=== PATIENT | male | born 1960 | race Caucasian/White ===

== ENCOUNTER 2023-04-04 06:24 | Outpatient (RCR) | payer OTHER, SELFPAY | END 2023-04-04 23:59 | disposition home or self-care (01) | LOC: RPT 06:24 | PROVIDERS: ATTENDING PHYSICIAN Physician Assistant; FAMILY PHYSICIAN Student in an Organized Health Care Education/Training Program | DX: Z47.1 Aftercare following joint replacement surgery (principal); Z96.612 Presence of left artificial shoulder joint | CPT/HCPCS: 97010; 97110; 97140 ==

== ENCOUNTER → 2023-10-19 12:56 | Outpatient (REF) | payer SELFPAY | LOC: RAD 12:56 | PROVIDERS: ATTENDING PHYSICIAN Student in an Organized Health Care Education/Training Program | DX: E78.00 Pure hypercholesterolemia, unspecified (principal) | CPT/HCPCS: 75571 ==

== ENCOUNTER → 2023-11-01 07:34 | Outpatient (REF) | payer OTHER, SELFPAY | LOC: RCS 07:34 | PROVIDERS: ATTENDING PHYSICIAN Student in an Organized Health Care Education/Training Program | DX: R93.1 Abnormal findings on diagnostic imaging of heart and coronary circulation (principal) | CPT/HCPCS: 93017 ==

== ENCOUNTER → 2024-01-04 07:53 | Outpatient (REF) | payer OTHER, SELFPAY | LOC: RCS 07:53 | PROVIDERS: ATTENDING PHYSICIAN Internal Medicine; FAMILY PHYSICIAN Student in an Organized Health Care Education/Training Program | DX: I44.4 Left anterior fascicular block (principal) | CPT/HCPCS: 93306 ==

== ENCOUNTER → 2024-02-13 10:08 | Outpatient (REF) | payer OTHER, SELFPAY | LOC: RAD 10:08 | PROVIDERS: ATTENDING PHYSICIAN Student in an Organized Health Care Education/Training Program | DX: R07.81 Pleurodynia (principal); R10.12 Left upper quadrant pain; Z85.46 Personal history of malignant neoplasm of prostate | CPT/HCPCS: 71101 ==

== ENCOUNTER → 2024-02-15 08:48 | Outpatient (REF) | payer OTHER, SELFPAY | LOC: HWRAD 08:48 | PROVIDERS: ATTENDING PHYSICIAN Student in an Organized Health Care Education/Training Program | DX: R07.81 Pleurodynia (principal); R10.12 Left upper quadrant pain; Z85.46 Personal history of malignant neoplasm of prostate | CPT/HCPCS: 74177; Q9967 ==

== ENCOUNTER 2024-07-11 05:57 | Day surgery (SDC) | payer OTHER, SELFPAY ==
[2024-06-27 09:05] LABS: Hematocrit 44.3 % (39.0-52.0); Hemoglobin 14.7 g/dL (13.0-18.0); Mean Corp Hgb Conc. 33.2 g/dL (33.0-37.0); Mean Corpuscular Hgb 29.5 pg (27.0-31.0); Mean Platelet Volume 10.7 fL (7.4-10.4); Platelet Count 241 10^3/uL (130-400); Red Blood Cell Count 4.98 10^6/uL (4.70-6.10); Red Cell Dist. Width 13.3 % (11.5-14.5); White Blood Cell Count 7.7 10^3/uL (4.8-10.8)
[2024-06-27 14:06] VITALS: BMI 25.4
[2024-07-11 06:21] VITALS: BP 144/85
[2024-07-11] MEDS: NORMOSOL-R/PLASMALYTE-A 1000 IV (06:37)
[2024-07-11] MEDS: TYLENOL 1000 MG PO (06:37)
[2024-07-11 06:44] VITALS: BMI 25.4
[2024-07-11 08:10] VITALS: BP 139/85; BP 144/85
[2024-07-11 08:24] VITALS: BP 141/89
[2024-07-11 08:25] VITALS: BP 141/89
--- NOTE | 2024-07-11 08:28 | W.IMMPOSTOP ---
Surgical Immed Post Op Note
-
Primary Surgeon: Brady Ortiz MD
Assisting Surgeon:
Pre-op Diagnosis: right knee medial and lateral meniscus tears
Post-op Diagnosis: right knee medial and lateral meniscus tears
Procedure Performed: arthroscopic right knee partial medial and lateral meniscectomy
Anesthesia Type: general
Specimen / Cultures: none
Estimated Blood Loss: 1mL
Complications: none apparent
Tourniquet time: 33 minutes
Operative Findings: grade 2 chondrosis of patella, medial body undersurface and lateral peripheral meniscus tears
Operative dictation #: [id number]
[2024-07-11 08:40] VITALS: BP 135/83
[2024-07-11 09:10] VITALS: BP 134/82
== END 2024-07-11 09:30 | disposition home or self-care (01) ==
LOC: SDS 05:57
PROVIDERS: ATTENDING PHYSICIAN Student in an Organized Health Care Education/Training Program; FAMILY PHYSICIAN Student in an Organized Health Care Education/Training Program
DX: S83.241A Other tear of medial meniscus, current injury, right knee, initial encounter (principal); S83.281A Other tear of lateral meniscus, current injury, right knee, initial encounter; X58.XXXA Exposure to other specified factors, initial encounter; M22.41 Chondromalacia patellae, right knee
CPT/HCPCS: 29880; 85027; 93005

== ENCOUNTER 2024-07-28 06:44 | Outpatient (RCR) | payer OTHER, SELFPAY | END 2024-07-28 23:59 | disposition home or self-care (01) | LOC: RPT 06:44 | PROVIDERS: ATTENDING PHYSICIAN Student in an Organized Health Care Education/Training Program; FAMILY PHYSICIAN Student in an Organized Health Care Education/Training Program | DX: Z47.89 Encounter for other orthopedic aftercare (principal); S83.206D Unspecified tear of unspecified meniscus, current injury, right knee, subsequent encounter; M25.561 Pain in right knee; Z73.6 Limitation of activities due to disability; M62.81 Muscle weakness (generalized); R53.83 Other fatigue | CPT/HCPCS: 97110; 97162 ==